=== PATIENT | female | born 1995 | race Asian ===

== ENCOUNTER 2018-10-23 14:44 | Emergency (ER) | payer OTHER ==
[2018-10-23 14:51] VITALS: BP 135/109
[2018-10-23] MEDS ORDERED: ALBUTEROL NEB 2.5 MG/3 ML INH STA (14:58)
--- NOTE | 2018-10-23 15:01 | ED Physician Documentation ---
PD HPI DYSPNEA - Stated complaint Stated Complaint: CONGESTION/COUGH - Chief complaint Chief Complaint: Resp - History obtained from History obtained from: Patient - History of Present Illness Timing - onset: Today (Today she has a cough productive clear sputum, shortness of breath. Some runny nose but no sore throat or fevers. In the past as a child she had similar issues when she got sick and would need an inhaler.) Review of Systems Constitutional: denies: Fever, Chills Ears: denies: Loss of hearing, Ear pain Nose: reports: Rhinorrhea / runny nose, Congestion. denies: Sinus pressure / pain Throat: denies: Sore throat Cardiac: denies: Chest pain / pressure, Palpitations Respiratory: reports: Dyspnea, Cough PD PAST MEDICAL HISTORY - Past Medical History Past Medical History: No - Past Surgical History Past Surgical History: No - Present Medications Home Medications: Ambulatory Orders Medication Instructions Recorded Confirmed Albuterol Sulf [Ventolin Hfa 1 - 2 puffs INH Q4HR PRN #1 inhaler 10/23/18 Inhaler] predniSONE [Deltasone] 60 mg PO DAILY 5 Days #15 tablet 10/23/18 - Allergies Allergies/Adverse Reactions: Allergies Allergy/AdvReac Type Severity Reaction Status Date / Time No Known Drug Allergies Allergy Verified 10/23/18 14:51 - Social History Does the pt smoke?: No Smoking Status: Never smoker PD ED PE NORMAL - Vitals Vital signs reviewed: Yes - General General: Alert and oriented X 3, No acute distress - HEENT HEENT: PERRL, EOMI - Neck Neck: Supple, no meningeal sign, No bony TTP - Cardiac Cardiac: RRR, No murmur - Respiratory Respiratory: Other (Very mildly labored breathing with expiratory wheezes.) - Abdomen Abdomen: Non tender - Derm Derm: No rash - Extremities Extremities: No edema, No calf tenderness / cord - Neuro Neuro: Alert and oriented X 3, Normal speech Results - Vitals Vitals: Vital Signs - 24 hr 10/23/18 10/23/18 14:49 15:09 Temperature 36.4 C L Heart Rate 110 H 99 Respiratory 19 28 H Rate Blood Pressure 135/109 H O2 Saturation 95 Oxygen O2 Source Room air PD MEDICAL DECISION MAKING - ED course ED course: 23-year-old woman with an acute wheezy bronchitis/reactive airways disease. After the administration of an albuterol nebulizer here she was completely clear and feeling better with normal vital signs. There is no evidence of bacterial infection. Departure - Departure Disposition: 01 Home, Self Care Clinical Impression: Acute wheezy bronchitis Condition: Good Record reviewed to determine appropriate education?: Yes Instructions: ED Reactive Airway Disease Prescriptions: Albuterol Sulf [Ventolin Hfa Inhaler] 1 - 2 puffs INH Q4HR PRN #1 inhaler PRN Reason: Shortness Of Air/Wheezing predniSONE [Deltasone] 60 mg PO DAILY 5 Days #15 tablet Comments: Call your doctor to arrange a follow-up appointment, make the next available appointment. In the interim, return anytime if worse or if new symptoms develop. Your blood pressure was elevated today on check into the emergency department. This does not mean that you have hypertension, it is a common phenomenon to come to the emergency department and have elevated blood pressure. I recommend that you see your primary care physician within the week to have it rechecked when you are feeling better. Forms: Activity restrictions
== END 2018-10-23 15:26 | disposition home or self-care (01) ==
LOC: ED 14:44
DX: J20.9 Acute bronchitis, unspecified (principal); R03.0 Elevated blood-pressure reading, without diagnosis of hypertension
CPT/HCPCS: 94640; 99283

== ENCOUNTER 2019-10-28 13:07 | Emergency (ER) | payer OTHER ==
[2019-10-28 13:31] LABS: BASOPHILS % (AUTO) 0.2 %; EOSINOPHILS % (AUTO) 0.2 %; HGB - HEMOGLOBIN 14.6 g/dL (12.0-16.0); LYMPHOCYTES # (AUTO) 1.7 10^3/uL (1.5-3.5); LYMPHOCYTES % (AUTO) 10.3 %; MEAN CORPUSCULAR HEMOGLOBIN 30.7 pg (27.0-31.0); MEAN CORPUSCULAR HGB CONC 32.3 g/dL (32.0-36.0); MEAN PLATELET VOLUME 9.2 fL (7.9-10.8); MONOCYTES # (AUTO) 0.6 10^3/uL (0.0-1.0); MONOCYTES % (AUTO) 3.6 %; NEUTROPHILS # (AUTO) 14.3 10^3/uL (1.5-6.6); NEUTROPHILS % (AUTO) 85.2 %; PLT - PLATELET COUNT 360 10^3/uL (130-450); RED BLOOD COUNT 4.76 10^6/uL (4.20-5.40); RED CELL DISTRIBUTION WIDTH 12.5 % (12.0-15.0); WHITE BLOOD COUNT 16.8 x10^3/uL (4.8-10.8)
[2019-10-28 13:33] LABS: BILIRUBIN,URINE NEGATIVE (NEGATIVE); GLUCOSE, URINE (UA) NEGATIVE (NEGATIVE); KETONES,URINE (UA) NEGATIVE (NEGATIVE); LEUKOCYTE ESTERASE, URINE MODERATE (NEGATIVE); NITRITE,URINE NEGATIVE (NEGATIVE); OCCULT BLOOD,URINE SMALL (NEGATIVE); PROTEIN,URINE NEGATIVE (NEGATIVE); UROBILINOGEN,URINE 0.2 (NORMAL) E.U./dL (NORMAL)
--- NOTE | 2019-10-28 13:33 | ED Physician Documentation ---
PD HPI NVD - Stated complaint Stated Complaint: ABD PAIN, CHILLS - Chief complaint Chief Complaint: Abd Pain - History obtained from History obtained from: Patient - History of Present Illness Timing - onset: Today Timing - duration: Days (1) Timing - details: Gradual onset Pain level max: 6 Pain level now: 5 Associated symptoms: Abdominal pain (crampy, lower abd pain). No: Fever, Hematemesis, Melena, Hematochezia, Dizzy, Near syncope / syncope, Loss of appetite, Weight loss Contributing factors: No: Sick contact, Bad food, Travel, Recent antibiotics, Alcohol use, Anticoagulated, Diabetes Improved by: Other (nothing) Worsened by: Other (nothing) Recently seen: Not recently seen - Additonal information Additional information: Patient states that she was recently started on medication for a yeast infection by her doctor. She states that she has a cream and pills. She does not know what they are. Review of Systems Ten Systems: 10 systems reviewed and negative Constitutional: denies: Fever, Chills Respiratory: denies: Cough GI: reports: Nausea, Diarrhea. denies: Vomiting : denies: Now EGA Skin: denies: Rash Musculoskeletal: denies: Neck pain, Back pain Neurologic: denies: Headache PD PAST MEDICAL HISTORY - Past Medical History Past Medical History: No - Past Surgical History Past Surgical History: No - Present Medications Home Medications: Ambulatory Orders Medication Instructions Recorded Confirmed Albuterol Sulf [Ventolin Hfa 1 - 2 puffs INH Q4HR PRN #1 inhaler 10/23/18 Inhaler] predniSONE [Deltasone] 60 mg PO DAILY 5 Days #15 tablet 10/23/18 Ondansetron Odt [Zofran] 4 mg TL Q6H PRN #10 tablet 10/28/19 predniSONE [Prednisone] 40 mg PO DAILY #6 tablet 10/28/19 - Allergies Allergies/Adverse Reactions: Allergies Allergy/AdvReac Type Severity Reaction Status Date / Time Iodinated Contrast Media Allergy Intermediate Hives Verified 10/28/19 14:40 - Social History Does the pt smoke?: No Smoking Status: Never smoker PD ED PE NORMAL - Vitals Vital signs reviewed: Yes - General General: Alert and oriented X 3, No acute distress - HEENT HEENT: Moist mucous membranes - Neck Neck: Supple, no meningeal sign - Cardiac Cardiac: RRR, Strong equal pulses - Respiratory Respiratory: No respiratory distress, Clear bilaterally - Abdomen Abdomen: Soft, Non tender, Non distended - Female Female : Pt declined - Back Back: No CVA TTP - Derm Derm: Warm and dry - Extremities Extremities: No edema, No calf tenderness / cord - Neuro Neuro: Alert and oriented X 3 - Psych Psych: Normal mood, Normal affect Results - Vitals Vitals: Vital Signs - 24 hr 10/28/19 10/28/19 10/28/19 13:13 13:15 14:33 Temperature 37.1 C 37.1 C Heart Rate 111 H 110 H 97 Respiratory 14 15 16 Rate Blood Pressure 120/68 120/68 132/95 H O2 Saturation 100 100 100 Oxygen O2 Source Room air - Labs Labs: Laboratory Tests 10/28/19 10/28/19 10/28/19 13:20 13:20 13:20 WBC 16.8 H RBC 4.76 Hgb 14.6 Hct 45.2 MCV 95.0 MCH 30.7 MCHC 32.3 RDW 12.5 Plt Count 360 MPV 9.2 Neut # (Auto) 14.3 H Lymph # (Auto) 1.7 [place] # (Auto) 0.6 Eos # (Auto) 0.0 Baso # (Auto) 0.0 Absolute Nucleated RBC 0.00 Nucleated RBC % 0.0 Sodium 139 Potassium 3.8 Chloride 102 Carbon Dioxide 27 Anion Gap 10.0 BUN 15 Creatinine 0.9 Estimated GFR (MDRD) 78 L Glucose 132 H Calcium 9.9 Total Bilirubin 0.7 AST 19 ALT 28 Alkaline Phosphatase 68 Total Protein 8.6 H Albumin 4.6 Globulin 4.0 Albumin/Globulin Ratio 1.1 Lipase 21 L Urine Color YELLOW Urine Clarity CLOUDY Urine pH 5.0 Ur Specific [place] 1.025 Urine Protein NEGATIVE Urine Glucose (UA) NEGATIVE Urine Ketones NEGATIVE Urine Occult Blood SMALL H Urine Nitrite NEGATIVE Urine Bilirubin NEGATIVE Urine Urobilinogen 0.2 (NORMAL) Ur Leukocyte Esterase MODERATE H Urine RBC 6-10 H Urine WBC 11-25 H Ur Squamous Epith Cells MANY Squamous H Urine Bacteria Moderate H Ur Microscopic Review INDICATED Urine Culture Comments NOT INDICATED Urine HCG, Qual NEGATIVE - Rads (name of study) CT abd/pelvis Radiology: Prelim report reviewed, EMP read contemporaneously, See rad report (no acute abnormalities) PD MEDICAL DECISION MAKING - ED course Complexity details: reviewed results, re-evaluated patient, considered differential, d/w patient ED course: Patient is well-appearing, nontoxic. Afebrile. Tolerating p.o. without difficulty. She did have a mild allergic reaction to the iodinated contrast from CT scan. Given Benadryl and prednisone. The reaction was localized to swelling around the right eye, this is decreasing. No difficulty speaking or swallowing. No difficulty breathing. No anaphylaxis. Unclear what medication she was recently started on. This may be contributing to the diarrhea. She does not know the names of the medications. Patient will follow-up with her doctor for further care. Patient counseled regarding signs and symptoms for which I believe and urgent re-evaluation would be necessary. Patient with good understanding of and agreement to plan and is comfortable going home at this time This document was made in part using voice recognition software. While efforts are made to proofread this document, sound alike and grammatical errors may occur. Departure - Departure Disposition: 01 Home, Self Care Clinical Impression: Diarrhea Qualifiers: Diarrhea type: unspecified type Qualified Code(s): R19.7 - Diarrhea, unspecified Allergic reaction Qualifiers: Encounter type: initial encounter Qualified Code(s): T78.40XA - Allergy, unspecified, initial encounter Condition: Good Instructions: ED Diarrhea Viral Follow-Up: Mile Clemons MD [Primary Care Provider] - Within 1 week Prescriptions: predniSONE [Prednisone] 40 mg PO DAILY #6 tablet Ondansetron Odt [Zofran] 4 mg TL Q6H PRN #10 tablet PRN Reason: Nausea / Vomiting Comments: Return if you worsen. There are no significant lab today. It is unclear what medications you are taking at home, please follow-up with your doctor to see if these could be causing your diarrhea. Your CT scan does not show any acute abnormalities, but you do appear to have an allergic reaction to contrast. If you need contrast in the future, you should be premedicated with steroids and Benadryl.
[2019-10-28 13:34] LABS: CLARITY,URINE CLOUDY (CLEAR); HCG UR QUAL NEGATIVE
[2019-10-28 13:46] LABS: ALBUMIN 4.6 g/dL (3.2-5.5); ALBUMIN/GLOBULIN RATIO 1.1 (1.0-2.2); BILIRUBIN,TOTAL 0.7 mg/dL (0.2-1.0); CALCIUM 9.9 mg/dL (8.5-10.3); CREATININE 0.9 mg/dL (0.4-1.0); TOTAL PROTEIN 8.6 g/dL (6.7-8.2)
[2019-10-28 13:53] LABS: BACTERIA,URINE Moderate /HPF (None Seen); SQUAMOUS EPITHELIAL CELL,UR MANY Squamous (<= Few)
[2019-10-28] MEDS ORDERED: IOVERSOL 320 100 ML VIAL IVP ONE ×2 (13:58→15:11)
[2019-10-28] MEDS ORDERED: methylPREDNISolone SUCCINATE 125 MG/2 ML VIAL IVP STA (14:22)
[2019-10-28] MEDS ORDERED: diphenhydrAMINE INJ 50 MG/ML VIAL IVP STA (14:22)
--- NOTE | 2019-10-28 14:41 | CT Report ---
PROCEDURE: Abdomen/Pelvis W INDICATIONS: diffuse abd pain, diarrhea CONTRAST: IV CONTRAST: Optiray 320 ml: 100 PO CONTRAST: *NO PO CONTRAST TECHNIQUE: After the administration of nonionic contrast, 5 mm thick sections acquired from the diaphragms to th e symphysis. 5 mm thick coronal and sagittal reformats were acquired. For radiation dose reduction, the following was used: automated exposure control, adjustment of mA and/or kV according to patient size. COMPARISON: None. FINDINGS: Image quality: Excellent. ABDOMEN: Lung bases: Lung bases are clear. Heart size is normal. Solid organs: Liver and spleen are normal in size and enhancement. Gallbladder Biliary system is non dilated. Pancreas enhances normally. No adrenal nodules. Kidneys demonstrate normal size an d enhancement, without hydronephrosis. Peritoneum and bowel: Bowel loops demonstrate normal wall thickness and caliber. No free fluid or a ir. Nodes and vessels: No retroperitoneal or mesenteric adenopathy by size criteria. Aorta and inferior vena cava are normal in size. Miscellaneous: No ventral hernias. PELVIS: Genitourinary: Bladder wall thickness is normal. Miscellaneous: No inguinal hernias or adenopathy. Normal appendix found right lower quadrant. Bones: No suspicious bony lesions. No vertebral body compression fractures. IMPRESSION: Source of current symptoms is not seen. Normal appendix found right lower quadrant. No e vidence of colitis. Reviewed by: Jeff Motley MD on 10/28/2019 2:40 PM PDT Approved by: Jeff Motley MD on 10/28/2019 2:40 PM PDT Station ID: [id number]
[2019-10-28 15:17] VITALS: BP 118/65
== END 2019-10-28 15:16 | disposition home or self-care (01) ==
LOC: ED 13:07
DX: R19.7 Diarrhea, unspecified (principal); T78.40XA Allergy, unspecified, initial encounter
CPT/HCPCS: 36415; 74177; 80053; 81001; 81025; 83690; 85025; 96374; 99284; J1200; Q9967; 81003; 87086